=== PATIENT | female | born 1990 | race Caucasian/White ===

== ENCOUNTER 2017-07-15 13:02 | Outpatient (RCR) | payer MEDICAID, SELFPAY ==
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
== END 2017-07-15 19:00 | disposition home or self-care (01) ==
LOC: PT 13:02
DX: G80.9 Cerebral palsy, unspecified (principal)
CPT/HCPCS: 97162; 97163

== ENCOUNTER 2019-05-04 15:47 | Emergency (ER) | payer MEDICAID, SELFPAY ==
[2019-05-04 15:49] VITALS: BP 143/83; PULSE 156; RESP 18; TEMP 36.8; TEMP 39.9; BMI 21.2
[2019-05-04 17:06] LABS: International Normalized Ratio 2.3; Prothrombin Time (Protime)PT. 25.3 SECONDS (11.7-14.9)
[2019-05-04 17:11] LABS: Absolute Lymphocyte Count 0.84 X10^3/uL (0.83-4.51); Absolute Neutrophil Count 5.4 X10^3/uL (2.0-7.7); Basophil# 0.01 X10^3/uL; Basophil% 0.1 % (0-1); Hematocrit 44.4 % (37-47); Hemoglobin 14.3 g/dL (12.0-15.0); Lymphocyte # 0.84 X10^3/ul (4.0); Lymphocyte % 11.5 % (19-41); Mean Corp Hgb Conc 32.2 g/dL (32-36); Mean Corpuscular Hgb 29.5 pg (27.0-32.0); Mean Corpuscular Volume 91.7 fL (81-99); Mean Platelet Vol. 11.3 fl (6.2-12.0); Monocyte# 1.02 X10^3/uL; NRBC Flagged by Analyzer 0 % (0-5); Neutrophil # 5.41 X10^3/uL (2.7-7.7); Neutrophil % 74.1 % (47-70); POSITIVE MORPHOLOGY YES; Platelet Count 171 K/mm3 (150-450); RBC Distribution Width CV 13.5 % (11.6-14.6); RBC Distribution Width SD 45.6 fl (35.1-43.9); Red Blood Count 4.84 M/mm3 (4.2-5.4); White Blood Count 7.3 K/mm3 (4.4-11.0)
[2019-05-04 17:18] LABS: ALB/GLOB Ratio 0.9 RATIO (0.9-2.4); AST(SGOT) 21 U/L (15-37); Alanine Aminotransfer ALT/SGPT 29 U/L (13-56); Albumin, Serum 3.7 g/dL (3.2-5.0); Alkaline Phosphatase 44 U/L (45-117); Anion Gap 10 (5-15); BUN 8 mg/dL (7-18); Calcium,Total 8.2 mg/dL (8.5-10.1); Chloride 101 mmol/L (98-107); Creatinine, Serum 0.57 mg/dL (0.55-1.02); Differential Indicated SCAN CRITERIA MET; EST Glomerular Filtration Rate 135 mL/min (>60); Est Glom Filt Rate - Afr Amer 164 mL/min (>60); Estimated Creatinine Clearance 105.07 ml/min; Globulin 3.9 g/dL (2.2-4.2); Glucose 94 mg/dL (74-106); Potassium 3.8 mmol/L (3.5-5.1); Protein, Total 7.6 g/dL (6.4-8.2); Sodium Level 138 mmol/L (136-145)
[2019-05-04] MEDS: 0.9% Normal Saline 1,000 ML 1000 ML IV (17:18)
[2019-05-04] MEDS: Ondansetron 4 MG/2 ML Vial IV (17:30)
[2019-05-04] MEDS: Acetaminophen 160 MG/5 ML UDC 670 MG PO (17:31)
[2019-05-04 17:45] LABS: Differential Comment SCANNED
--- NOTE | 2019-05-04 18:00 | RAD_ITS ---
STUDY: X-RAY CHEST REASON FOR EXAM: Female, 28 years old. Cough starting yesterday TECHNIQUE: PA and lateral views of the chest. COMPARISON: 11/21/2015. FINDINGS: Cardiac silhouette unremarkable. Pulmonary vascularity unremarkable. Aorta unremarkable. No focal airspace opacities. No pleural effusions. Upper abdomen unremarkable. Prominent spinal curvature is poorly characterized. No pneumothorax. RAD/Chest PA and Lateral IMPRESSION: No acute cardiopulmonary findings Electronically Signed: Sathish Coto, at 18:35 EDT Tel , Service support ,
[2019-05-04 18:02] LABS: Lactic Acid 1.3 mmol/L (0.4-1.9)
[2019-05-04 18:51] VITALS: TEMP 37.9
[2019-05-04 18:55] VITALS: BP 114/77; PULSE 110; RESP 18; TEMP 37.9; O2SAT 94
[2019-05-04 19:12] LABS: Bacteria 0 SEEN /hpf (None Seen); Mucous, Urine 0 SEEN /hpf (<or=2+); Red Blood Cells-Urine 0 SEEN /hpf (0-5); White Blood Cells 0 SEEN /hpf (0-5)
[2019-05-04 19:13] LABS: Color, Urine Yellow (Yellow); Glucose, Dipstick Normal (Normal); Ketone-Dipstick Negative (Negative); Leukocyte Esterase-Dipstick Negative /ul (Negative); Nitrite-Dipstick Negative (Negative); Occult Blood-Urine 25 /ul (Negative); Protein-Dipstick 15 mg/dl (Negative); Urine Bilirubin Dipstick Negative (Negative); Urine Clarity Clear (Clear); Urine Urobilinogen 1 mg/dl (Normal)
--- NOTE | 2019-05-04 19:14 | ED.VISSUMM ---
- ER Visit Summary Date of Service: 05/04/19 Chief Complaint: Dental pain History of Present Illness: The patient is a 28 F who presents with dental pain that began yesterday. Patient states the pain is over the lower incisors anteriorly. Patient states it is worse on the right. Patient states the pain is worse with eating. Patient admits to fevers and chills. Patient denies any hot or cold sensitivity. Patient also admits to a cough with some white sputum. Patient also admits to rhinorrhea. Patient also states she has been having some nausea and vomiting as well as a headache. Patient has a history of cerebral palsy. Physical Examination: Vital signs are stable except for tachycardia of 156. Patient is febrile with a temperature of 103.8. Patient is in no acute distress. Oral mucosa is pink and moist. Oral pharynx is clear. There is some gingival edema of the lower gingiva anteriorly. There is no abscess formation. There is no sublingual edema or evidence of Tanvir angina. There are multiple dental caries over the lower incisors. Neck is supple. Trachea is midline. There is no JVD. Heart was regular and tachycardic. Lungs are clear and equal bilaterally. Abdomen is soft and nontender. Test Results: Due to the patient's tachycardia and fever, labs were obtained. CBC and comprehensive metabolic profile were within normal limits. PT with INR was therapeutic at 2.3. Urinalysis does not show any evidence of urinary tract infection. Influenza swab was negative. Lactate was normal. PA and lateral chest x-ray was obtained. There is no acute cardiopulmonary process. It was interpreted by the radiologist and myself. Emergency Department Course and Treatment: Patient was given IV fluids. Patient was given a dose of Tylenol here. Patient was given a dose of Unasyn here. Repeat pulse was 110. Repeat temperature was down to 100.3. Patient was feeling better on reevaluation. Patient was given a prescription for Augmentin. Patient was instructed to follow-up with her primary care physician and dentist in 5 to 7 days. Patient and family understood and were agreeable with the plan. All questions were answered. Disposition: Discharge home Impression: 1. Infected dental caries This note was generated with [employer] software. It may contain incorrect words, spelling, and punctuation that were not noted in review of the chart prior to signing ED Disposition - Plan for ED Patient: Disposition: Home or Assisted Living Diagnosis: Infected dental caries Instructions: Dental Abscess Prescriptions: Amox/Clavulanate Tablet [Augmentin Tablet] 875 mg PO Q12H #20 tab Prescription Printed Referrals: Care Physician,No Primary [Primary Care Provider] - 5-7 Days
[2019-05-04 19:27] LABS: Squamous Epithelial Cells - UA 0-5 SEEN /hpf (5-10)
[2019-05-04 20:18] VITALS: PULSE 76; RESP 22; O2SAT 95
--- NOTE | 2019-05-04 20:22 | ED.RN ---
THIS RN WENT TO DC PT AND PT'S CAREGIIVER EXPRESSED CONCERNS RE: COVID19 W/PT'S IMMUNOCOMPROMISED STATE. EXPLAINED TO CAREGIVER THAT THERE IS A PARTICULAR CRITERION, BUT THE PT DID NOT MEET CRITERION. CAREGIVER THEN ASKED IF RSV HAD BEEN RULED OUT. DISCUSSED W/DR MANNING, WHO SAID HE WOULD ORDER RSV SWAB. AFTER EXPLAINING THIS TO CAREGIVER, SHE STATED THAT LONG THE CHEST XRAY WAS CLEAR, THEY WOULD BE COMFORTABLE W/DISCHARGE. FINDINGS OF CSRAY SHARED W/CAREGIVER AND CAREGIVER NOW OK W/DC.
== END 2019-05-04 20:34 | disposition home or self-care (01) ==
PROVIDERS: Emergency Provider Emergency Medicine
DX: K02.9 Dental caries, unspecified (principal); K04.7 Periapical abscess without sinus; G80.9 Cerebral palsy, unspecified; Z86.718 Personal history of other venous thrombosis and embolism
CPT/HCPCS: 71046; 80053; 81001; 83605; 85025; 85610; 87040; 87804; 96365; 96375; 99285; P9612; A4216; J0295; J2405

== ENCOUNTER 2022-02-25 00:57 | Emergency (ER) | payer MEDICAID, SELFPAY ==
[2022-02-25 00:58] VITALS: BP 138/102; PULSE 103; RESP 16; TEMP 36.8; O2SAT 98; BMI 22.1
--- NOTE | 2022-02-25 01:09 | EX.ED.DYSGE1 ---
HPI History of Present Illness Chief Complaint: General Illness Informant: patient and family Onset/Context/Timing Onset: Hours (2) Context: Gradual Onset Timing: Continuous Quality: shaky Location: BLE Current Severity: Moderate Maximum Severity: Moderate Worsened by: nothing Relieved by: nothing Associated Symptoms Associated Symptoms: pruritis BLE Narrative Narrative: Patient and family present about 14 hours after she had surgery to replace the battery on her functioning baclofen pump that she uses for spasticity, I suspect spinal spasticity. She is tremulous in her lower extremities and itchy, similar symptoms to when she has had withdrawal from her baclofen in the past. They are concerned of the pump was not functioning. It was replaced at [facility]. They were not able to get a hold of any specialist in the office, this started at 11 PM and he present here at about 1 AM. She denies any fevers or chills or any other symptoms. She has a little soreness at the surgical site but otherwise it is not very painful. She urinates on her own, she denies any urinary issues recently. She has had urinary infections in the past, she usually has some disorientation sometimes and fevers, she has had none of that. [facility] Medical History Cerebral palsy DVT (deep venous thrombosis) Seizure Home Medications Baclofen 11/21/15 [History Last Taken Unknown] warfarin 2.5 mg tablet (Jantoven) 2.5 mg PO DAILY 11/21/15 [History Last Taken Unknown] amoxicillin 875 mg-potassium clavulanate 125 mg tablet 875 mg PO Q12H #20 tabs 05/04/19 [Rx Last Taken Unknown] sertraline 50 mg tablet 50 mg PO DAILY 05/04/19 [History Last Taken Unknown] baclofen 10 mg tablet 20 mg PO TID PRN spasticity #20 tabs 02/25/22 [Rx Last Taken Unknown] Allergy/AdvReac Type Severity Reaction Status Date / Time carbinoxamine [From [facility]] Allergy Rash Verified 11/21/15 11:28 pseudoephedrine [From [facility]] Allergy Rash Verified 11/21/15 11:28 cefotetan AdvReac Intermediate injection Verified 11/28/15 19:42 site Social History Smoking Status: Never smoker ROS ROS ED Constitutional Constitutional ED: Denies chills or fever(s) Eyes Eyes: Denies change in vision or diplopia ENT ENT ED: Denies rhinorrhea or sore throat Cardiovascular Cardiovascular: Denies chest pain or palpitations Respiratory/Chest Respiratory/Chest: Denies cough or dyspnea Gastrointestinal Gastrointestinal: Denies abdominal pain, diarrhea, nausea or vomiting Genitourinary Genitourinary ED: Denies dysuria or hematuria Musculoskeletal Musculoskeletal: Reports muscle spasms and tremors; Denies back pain or neck pain Integumentary Reports pruritus; Denies abscess or rash Neurologic Neurologic: Reports weakness and other Details: Pre-existing deficits unchanged ; Denies headache(s) Psychiatric Psychiatric: Denies anxiety or suicidal thoughts EXAM Physical Exam Const Vital Signs: 02/25/22 00:58 02/25/22 01:02 Temperature 98.2 F Temperature Source Temporal Pulse Rate 103 H Respiratory Rate 16 Respiratory Effort Normal Non-Labored Respiratory Pattern Normal Blood Pressure 138/102 H Blood Pressure Mean 114 Pulse Ox 98 Oxygen Delivery Method Room Air Positive well nourished and well developed General Appearance ED: well developed and NAD HEENT Reports moist mucous membranes normocephalic and atraumatic Neck full ROM and supple Resp normal respiratory effort and clear to auscultation bilaterally Cardio regular rate, regular rhythm and no murmurs GI non-distended GI Narrative: Right lower quadrant surgical site dressing clean, intact, there is a small amount of postoperative blood in the center of it but nothing that is leaking out. Minor tenderness at this area, otherwise benign abdomen. Auscultation: normoactive bowel sounds Palpation: soft Back/Spine no CVA tenderness General Back: other FROM Extremity normal to inspection General Extremety ED: Negative for edema, pulses abnormal or tenderness General Extremity: Negative for edema or pulses abnormal Neuro oriented x3 Neuro Narrative: Weakness in the legs. Clonus present bilaterally. Otherwise normal reflexes. Sensorium / Orientation: awake and alert Skin no rashes or lesions noted and no wounds MDM MDM MDM Narrative Medical decision making narrative: The patient and her family are concerned that there is something wrong with the pump and that she is withdrawing from baclofen. I have no way to evaluate the pump at 2 AM, other than it surgical site which does not appear to be infected. Her specialist is in a different city, and they already tried to call the office. At this time I think would be reasonable to give her some baclofen, which was done orally. She did not notice any major difference but did not get worse and her vital signs are normal here. She feels well otherwise. Certainly this could be some withdrawal from baclofen, I believe it is also possible that the pump is now malfunctioning and that she had time off of the medication intrathecally, and may have to wait for it to equilibrate. Regardless I do not think a little extra baclofen is going to hurt her at this time. With regards to the pruritus, on further questioning it sounds like she had a single dose of IV antibiotic in the morning prior to her surgery, and she developed an itchy rash after surgery, they thought it was due to the antibiotic. The rash is gone now, she still has some pruritus, and I suspect it is probably related to that. She is asking for some Benadryl which we will give her prior to discharge with a prescription for some more baclofen, they are comfortable with this overall plan of contacting their surgeon in the morning to have their Pap reevaluated as soon as possible. Discharge Plan Triage Chief Complaint: General Illness ED Provider: Sina Perez Dx/Rx/DC Orders Clinical Impression: Spasticity, Drug withdrawal Instructions: ED Muscle Spasm Prescriptions: New baclofen 10 mg tablet 20 mg PO TID PRN (Reason: spasticity) Qty: 20 0RF No Action warfarin [Jantoven] 2.5 MG tablet 2.5 mg PO DAILY Label Comments: prevents DVT Baclofen Label Comments: PT HAS A PUMP PLACED Rx Instructions: pump sertraline 50 MG tablet 50 mg PO DAILY amoxicillin-pot clavulanate 875 MG tablet 875 mg PO Q12H Qty: 20 0RF Primary Care Provider: Sandi Watts Referrals: Surgeon, your [Other] - As soon as possible Sandi Watts MD [Primary Care Provider] - Disposition Disposition: Home, Self Care
[2022-02-25] MEDS: Baclofen 10 MG Tablet PO (01:15)
[2022-02-25] MEDS: DiphenhydrAMINE 25 MG Capsule 50 MG PO (02:13)
== END 2022-02-25 02:16 | disposition home or self-care (01) ==
PROVIDERS: Emergency Provider Emergency Medicine; PCP Internal Medicine; Visit Provider Emergency Medicine
DX: R25.2 Cramp and spasm (principal); L29.9 Pruritus, unspecified
CPT/HCPCS: 99283

== ENCOUNTER 2022-08-07 07:05 | Outpatient (RCR) | payer MEDICAID, SELFPAY ==
--- NOTE | 2022-08-07 13:03 | HP.PTEVAL_ITS ---
Patient's Visit Information YOSELYN NASSAR is a 32 year old F referred to Physical Therapy by MICAHEL Adams with a diagnosis of CP and chronic R knee pain. Date of Evaluation: 08/07/22 Physical Therapist: SHENA Saez - Visit Plan Plan: Sister Kaity wants to do PROM of the R knee at home with heating it a head of time and possible trial of light massage ahead of stretching to see if this helps her pain and then she will call in and let us know how that is working - Subjective She is having some knee pain and it happens every so often and it usually goes away but this time it is not going away. Normally she can be up in her chair every day but can not tolerate it and so she lays in bed now more. She now has some pain pills over the last 30 days. Indep mobility in the chair. She does go to standing in the chair but has not recently cause of the pain. She is 1 person dependent to transfer. She transfers 4 times a day to potty, chair and bed. Her sister Kaity is present. Her R knee hurts in the front and it feels like it is sore. It is sore to the touch as well. She can not bend her knee to get into the chair. There is an x-ray ordered. She has no N&T. She does have back pain. Her knee pain hurts with sitting all day. - Pain R knee pain Pain Intensity (Out of 10): 9 - Objective -10 R knee PROM ext painful at end range sitting in her chair. 27 degrees R knee flexion PROM painful at end range sitting in her chair. Worked PROM X 8 min of the R knee and a little with the hip and the pt felt a little better after - Balance/Special Test Scores Lower Extremity Functional Score: 16 - Rehabilitation Potential Rehabilitation Potential: Good - Anticipated Interventions Thank you for the opportunity to evaluate your patient. For Medicare and Medicare HMO plans, please review the plan of care and approve it. It will need to be FAXED BACK to us at [phone] for Medicare purposes. For Medicare only, by signing this I certify the plan of care. Please let me know if there are questions or concerns regarding this plan of care. Physician Signature: Date:
--- NOTE | 2022-11-17 15:01 | HP.PTDCSUM ---
Discharge Summary D/C summary: It has been my pleasure to treat YOSELYN ANSSAR referred by MICHAEL Adams, with the diagnosis of CP and chronic R knee pain for a total of 1 visit(s). Discharge Date: 11/17/22 Please see the following information for a summary of their discharge status. Pain R knee pain: Pain Intensity (Out of 10): 9 Plan Plan: Sister Kaity wants to do PROM of the R knee at home with heating it ahead of time and possible trial of light massage ahead of stretching to see if this helps her pain and then she will call in and let us know how that is working D/C Information Discharge Comments: DC PT Sister to do PT at home d/c sentence: If there are questions or concerns regarding this patient's physical therapy, please feel free to call me at [phone]. Thank you for the referral of this patient. Sincerely, Simi Salazar, MPT Balance/Gait/Functional tests Balance/Special Test Scores Lower Extremity Functional Score: 16
== END 2022-08-07 19:00 | disposition home or self-care (01) ==
LOC: PT 07:05
PROVIDERS: PCP Internal Medicine; Referring Provider Clinical Nurse Specialist; Visit Provider Clinical Nurse Specialist
DX: M25.561 Pain in right knee (principal); G82.50 Quadriplegia, unspecified; G89.29 Other chronic pain
CPT/HCPCS: 97161

== ENCOUNTER 2025-02-01 15:23 | Emergency (ER) | payer MEDICAID, SELFPAY ==
[2025-02-01 15:24] VITALS: BP 132/88; PULSE 93; RESP 18; TEMP 36.2; O2SAT 99
--- NOTE | 2025-02-01 18:25 | RAD_ITS ---
PROCEDURE: TIBIA FIBULA 2 VIEWS 02/01/2025 REASON FOR EXAM: INJURY/PAIN TECHNIQUE: Procedure Code: RADTF Modality: DX Procedure: TIBIA FIBULA 2 VIEWS Laterality: Right COMPARISON: None available. FINDINGS: Bones: There is a subtle impacted fracture of the proximal right tibia. Joints: Normal alignment at the knee and ankle. Soft tissues: Soft tissues are unremarkable. RAD/Tibia & Fibula 2 Views IMPRESSION: Subtle impacted fracture of the proximal right tibia. [facility]
[2025-02-01 19:24] VITALS: BP 122/88; PULSE 100; RESP 24; O2SAT 99
[2025-02-01] MEDS: Lidocaine 1% (20 ml mdv) 20 ML Vial INFILT (19:30)
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
--- NOTE | 2025-02-01 21:26 | CT_ITS ---
PROCEDURE: CT RIGHT LOWER EXTREMITY WITHOUT CONTRAST 02/01/2025 REASON FOR EXAM: TRAUMA, CONCERN FOR TIBIAL FRACTURE TECHNIQUE: Procedure Code: CTELWO Modality: CT Procedure: EXTREMITY LOWER WITHOUT CONTRA CT right knee without contrast. Coronal and Sagittal reconstructions were provided. One or more dose reduction techniques were used (e.g., Automated exposure control, adjustment of the mA and/or kV according to patient size, use of iterative reconstruction technique). RADIATION DOSE SUMMARY: CTDlvol: 15.35 mGy DLP: 491.92 mGycm COMPARISON: Radiographs earlier same day. FINDINGS: Acute minimally displaced/depressed comminuted intra-articular fracture of the medial tibial plateau. No additional acute fracture or dislocation. Alignment is anatomic. Moderate traumatic joint effusion with lipohemarthrosis. Mild generalized soft tissue edema/contusional changes about the knee. CT/Extremity Lower without Contra IMPRESSION: Acute comminuted intra-articular fracture of the medial tibial plateau. Reading Location: [id number]
[2025-02-01] MEDS: HYDROcodone Bitartrate/Apap 5/325 Tablet PO (21:41)
[2025-02-01 21:44] VITALS: BMI 23.4
[2025-02-01 23:17] VITALS: BP 117/81; PULSE 107; RESP 18; TEMP 36.2; O2SAT 98
== END 2025-02-01 23:29 | disposition home or self-care (01) ==
PROVIDERS: Emergency Provider Emergency Medicine; PCP Internal Medicine; Visit Provider Emergency Medicine
DX: S82.131A Displaced fracture of medial condyle of right tibia, initial encounter for closed fracture (principal); G80.9 Cerebral palsy, unspecified; G40.909 Epilepsy, unspecified, not intractable, without status epilepticus; S81.811A Laceration without foreign body, right lower leg, initial encounter; Z99.3 Dependence on wheelchair; Z86.718 Personal history of other venous thrombosis and embolism; Z79.01 Long term (current) use of anticoagulants; R07.9 Chest pain, unspecified; V00.818A Other accident with wheelchair (powered), initial encounter
CPT/HCPCS: 12001; 73590; 73700; 99284